=== PATIENT | male | born 1950 | race Caucasian/White ===

== ENCOUNTER 2024-05-20 13:04 | Emergency (ER) | payer MEDICARE, SELFPAY ==
[2024-05-20 13:18] VITALS: BP 177/87; BMI 34.4
--- NOTE | 2024-05-20 14:31 | ED.GENMED ---
History of Present Illness
General
Chief Complaint: Fall
Time Seen by Provider: 05/20/24 13:59
History of Present Illness
History of Present Illness:
73-year-old male presents the emergency department for evaluation of pain to the left shoulder and left chest wall after a fall 9 days ago. He states he was walking up a flight of stairs when he lost consciousness and fell. He states that the loss
of consciousness is most likely due to diarrhea and poor p.o. intake, did not get this evaluated at all medically. States his left shoulder range of motion and pain has been gradually improving since the initial injury.
Review of Systems
Review of Systems
Allergies reviewed?: Yes
All Other Systems: ROS reviewed and negative except as documented in HPI and ROS
Phy Exam
Physical Exam
Physical Exam:
GEN: Well appearing, NAD, WDWN
HEENT: Oral mucosa moist, no scleral icterus
Cardiac: Regular rate
Lung: No respiratory distress, no tachypnea
MSK: No gross deformity or injuries. Left shoulder range of motion is normal however pain is noted with abduction. There is focal tenderness to the AC joint with no gross step-off or deformity. No obvious chest wall deformities or ecchymosis
Skin: Good color, no pallor or jaundice, no rashes
Neuro: AO x3, moves all extremities freely
Psych: Calm, cooperative
Course
Orders/Labs/Results
Orders:
Orders
05/20/24 13:21
Shoulder, Left, Trauma CR [CR Shoulder, Trauma - Left] Urgent
Comment:
Reason For Exam: pain
05/20/24 13:22
CR Ribs-hiren 4 Vw W/pa Chest Urgent
Comment:
Reason For Exam: pain
Vital Signs
Initial and Last Documented VS:
Initial Vital Signs
Temp Pulse Resp BP Pulse Ox
97.6 F 63 16 177/87 93
05/20/24 13:18 05/20/24 13:18 05/20/24 13:18 05/20/24 13:18 05/20/24 13:18
Last Documented Vital Signs
Temp Pulse Resp BP Pulse Ox
97.6 F 63 16 177/87 93
05/20/24 13:18 05/20/24 13:18 05/20/24 13:18 05/20/24 13:18 05/20/24 13:18
MDM/Problems Addressed
MDM/Problems Addressed:
Minimally displaced left clavicle fracture identified. Given that this is greater than 1 week old and the patient has adequate range of motion would opt to not immobilize the patient at this time. Will recommend outpatient orthopedic follow-up
*Critical Care Note
Total Time (30-74mins, 75-104mins- exclusive of procedures): Not Applicable
ED Attending Note
-
Portions of this chart may have been created with voice recognition software.� Occasional wrong word or��sound alike� substitutions may have occurred due to the inherent limitations of voice recognition software.
Discharge Plan
Departure
Patient Disposition: Home (Routine Discharge)
Date of Disposition: 05/20/24
Time of Disposition: 14:31
Patient with high blood pressure during this ER visit?: No
Discharge Problem:
Closed fracture of left clavicle
Instructions: Clavicle fracture
Referrals:
Winston Machado MD [Active] -
Interventions
Interventions:
*Risk Screen - Suicide Last Done: 05/20/24 13:18
*General Assessment Last Done: 05/20/24 14:28
*Neglect/Abuse Screening Last Done: 05/20/24 13:18
ED- Fall Risk Assessment Last Done: 05/20/24 14:25
*ED COVID-19 Vaccine History Last Done: 05/20/24 14:28
*Nursing Disposition Last Done: 05/20/24 14:48
ED-Musculoskeletal Assessment Last Done: 05/20/24 14:29
ED- Neurological Assessment Last Done: 05/20/24 14:28
ED-Skin Assessment Last Done: 05/20/24 14:29
Discharge Date and Time
Discharge Date/Time: 05/20/24 14:48
Print Language: KITTITIAN
== END 2024-05-20 14:48 | disposition home or self-care (01) ==
LOC: EMR 13:04
PROVIDERS: EMERGENCY PHYSICIAN Student in an Organized Health Care Education/Training Program; FAMILY PHYSICIAN Family Medicine
DX: S42.032A Displaced fracture of lateral end of left clavicle, initial encounter for closed fracture (principal); W19.XXXA Unspecified fall, initial encounter
CPT/HCPCS: 99283; 71111; 73030

== ENCOUNTER → 2025-09-06 13:59 | Outpatient (REF) | payer MEDICARE, OTHER, SELFPAY | LOC: HWRAD 13:59 | PROVIDERS: ATTENDING PHYSICIAN Family Medicine | DX: Z87.891 Personal history of nicotine dependence (principal); Z12.2 Encounter for screening for malignant neoplasm of respiratory organs | CPT/HCPCS: 71271 ==